=== PATIENT | male | born 1990 | race Two or more races ===

== ENCOUNTER 2020-01-22 01:14 | Emergency (ER) | payer SELFPAY ==
[~2020-01-22] VITALS: Ht 165.1 cm; Wt 127.0 kg
[2020-01-22 01:25] VITALS: BP 94/61
--- NOTE | 2020-01-22 01:25 | NUR ---
ED Nurse Note: Patient brought in by ambulance from home RA58 d/t overdose of unknown substance, patient vomited prior to arrival. Patient aao x 3 and ambulatory with weak gait. Patient changed into gown and placed on industrial education teacher. Left forearm 22g IV established, blood sent to lab. Patient stable upon assessment.
--- NOTE | 2020-01-22 01:32 | Emergency Room Report ---
History of Present Illness General Chief Complaint: Overdose Source: Patient, Family Member, EMS Present Illness HPI This is a 29-year-old male with a history of diabetes morbid obesity. He presents with chief complaint of altered mental status. According to EMS and his sister, patient has been sleepy all day. He ate [employer] and went to sleep. His sister checked up on him and he was unresponsive and his lips were blue. She said he was not breathing. She called 911. She started doing some CPR on him. EMS gave him a total of 6 mg of Narcan and he eventually woke up. He denies any drug use. Said he took 3 Percocet today for his back pain. He was prescribed this. His sister said that he has a history of addiction to pills. Patient denies any alcohol or drugs. Denies any nausea or vomiting. Denies any other complaint. Allergies: Coded Allergies: No Known Allergies (Unverified , 01/22/20) COVID-19 Screening Contact w/high risk pt: No Recent Travel to affected area: No Experienced COVID-19 symptoms?: No Patient History Past Medical History: see triage record, old chart reviewed, DM Past Surgical History: none Pertinent Family History: none Social History: Denies: smoking Immunizations: other Reviewed Nursing Documentation: PMH: Agreed; PSxH: Agreed Nursing Documentation-PMH Past Medical History: No History, Except For Hx Diabetes: Yes Review of Systems Eye: Denies: eye pain, blurred vision ENT: Denies: ear pain, nose congestion, throat swelling Respiratory: Denies: cough, shortness of breath Cardiovascular: Denies: chest pain, palpitations Gastrointestinal: Denies: abdominal pain, diarrhea, nausea, vomiting Musculoskeletal: Denies: back pain, joint pain Skin: Denies: rash Neurological: Denies: headache, numbness Endocrine: Denies: increased thirst, increased urine Hematologic/Lymphatic: Denies: easy bruising All Other Systems: negative except mentioned in HPI Physical Exam Vital Signs Date Time Temp Pulse Resp B/P (MAP) Pulse Ox O2 Delivery O2 Flow Rate FiO2 01/22/20 01:14 98.1 97 22 133/87 (102) 98 Room Air Vitals normal Sp02 EP Interpretation: reviewed, normal General Appearance: well appearing, no apparent distress, alert, obese Head: normocephalic, atraumatic Eyes: bilateral eye PERRL, bilateral eye EOMI ENT: hearing grossly normal, normal pharynx Neck: full range of motion, supple, no meningismus Respiratory: chest non-tender, lungs clear, normal breath sounds Cardiovascular #1: regular rate, rhythm, no murmur Gastrointestinal: normal bowel sounds, non tender, no mass, no organomegaly, no bruit, non-distended Musculoskeletal: back normal, normal range of motion, gait/station normal Psychiatric: mood/affect normal Medical Decision Making Diagnostic Impression: Primary Impression: Drug overdose Qualified Codes: T50.901A - Poisoning by unspecified drugs, medicaments and biological substances, accidental (unintentional), initial encounter Additional Impressions: Hyperglycemia due to type 2 diabetes mellitus Qualified Codes: E11.65 - Type 2 diabetes mellitus with hyperglycemia Morbid obesity with BMI of 45.0-49.9, adult CKD (chronic kidney disease) stage 3, GFR 30-59 ml/min ER Course Patient with altered mental status with decreased mentation. He responded to Narcan. This most likely secondary to opiate overdose. Patient is now awake. Talking normally. No focal deficit. I see no need for CT scan. Patient does not want to stay for the results of his blood work or urine drug screen. He wants to leave AGAINST MEDICAL ADVICE. He is competent to make that decision. His sister here to take him home. Patient is taking metformin for diabetes. He said that he has not been taking it regularly. Last Vital Signs Date Time Temp Pulse Resp B/P (MAP) Pulse Ox O2 Delivery O2 Flow Rate FiO2 01/22/20 01:25 98.3 108 23 94/61 98 Room Air Status: improved Disposition: AGAINST MEDICAL ADVICE Condition: Stable Additional Instructions: Take your medication as prescribed. Do not take too much of your pain medication. You are leaving before blood works are done. Follow-up with your doctor in 7 days. Return if worse. Marito Dillon MD Jan 22, 2020 01:32
--- NOTE | 2020-01-22 01:54 | NUR ---
ED Nurse Note: Patient unable to provide urine at this time, provided with urinal.
[2020-01-22 02:02] LABS: BASOPHILS % (AUTO) 0.6 % (0.0-2.0); HEMATOCRIT 36.6 % (42.0-52.0); LYMPHOCYTES % (AUTO) 13.2 % (20.0-45.0); MEAN CORPUSCULAR VOLUME 82 FL (80-99); MONOCYTES % (AUTO) 4.6 % (1.0-10.0); NEUTROPHILS % (AUTO) 80.6 % (45.0-75.0); PLATELET COUNT 198 K/UL (150-450); RED BLOOD COUNT 4.47 M/UL (4.70-6.10); RED CELL DISTRIBUTION WIDTH 11.7 % (11.6-14.8); WHITE BLOOD COUNT 14.2 K/UL (4.8-10.8)
[2020-01-22 02:10] LABS: ANION GAP 10 mmol/L (5-15); BLOOD UREA NITROGEN 21 mg/dL (7-18); CARBON DIOXIDE 25 MMOL/L (21-32); CHLORIDE 102 MMOL/L (98-107); CREATININE 1.6 MG/DL (0.55-1.30); POTASSIUM 3.5 MMOL/L (3.5-5.1); SODIUM 137 MMOL/L (136-145)
[2020-01-22 02:18] LABS: APPEARANCE,URINE CLEAR; BILIRUBIN, URINE NEGATIVE (NEGATIVE); GLUCOSE, URINE (UA) 3+ (NEGATIVE); KETONES,URINE NEGATIVE (NEGATIVE); LEUKOCYTE ESTERASE ,URINE NEGATIVE (NEGATIVE); NITRITE,URINE NEGATIVE (NEGATIVE); PH,URINE 5 (4.5-8.0); PROTEIN,URINE 3+ (NEGATIVE); UROBILINOGEN,URINE 1 MG/DL (0.0-1.0)
[2020-01-22 02:22] LABS: COLOR,URINE YELLOW
[2020-01-22 02:25] VITALS: BP 108/58
--- NOTE | 2020-01-22 02:25 | NUR ---
ER DISCHARGE NOTE: Patient is cleared to be discharged per ERMD, pt is aox4, on room air, with stable vital signs. pt was given dc instructions, pt was able to verbalize understanding, pt id band and iv site removed intact without complications. pt is able to ambulate with steady gait. pt took all belongings. pt discharged in stable condition accompanied by caregiver.
== END 2020-01-22 02:25 | disposition left against medical advice (07) ==
LOC: EDBD 01:14 → EMR 01:36
DX: T50.901A Poisoning by unspecified drugs, medicaments and biological substances, accidental (unintentional), initial encounter (principal); E11.65 Type 2 diabetes mellitus with hyperglycemia; E66.01 Morbid (severe) obesity due to excess calories; E11.22 Type 2 diabetes mellitus with diabetic chronic kidney disease; N18.3 Chronic kidney disease, stage 3 (moderate); X58.XXXA Exposure to other specified factors, initial encounter; Z68.42 Body mass index [BMI] 45.0-49.9, adult
CPT/HCPCS: 36415; 80048; 80307; 81001; 85025; 85379; 96360; 99284; J7030